=== PATIENT | female | born 1955 | race African-American/Black ===

== ENCOUNTER 2018-03-03 10:25 | Inpatient (IN) | payer MEDICAID ==
[2018-03-03] VITALS (7 sets, daily range): BP systolic 140–172; BP diastolic 50–97
[~2018-03-03] VITALS: Ht 170.2 cm; Wt 62.6 kg
[~2018-03-03 10:25] MED LIST: AMLO10TA80 PO; ASPI-1159 PO; DOCU-150 PO; FLUT1DIS IH; GABA-531 PO; LORA0.5T2 PO
[2018-03-03] MEDS ORDERED: ASPIRIN 81MG TABLET PO ONE (10:30)
[2018-03-03] MEDS ORDERED: ALBUTEROL (0.083%) 2.5MG/3ML NEB HHN STA (10:30)
[2018-03-03] MEDS ORDERED: METHYLPREDNISOLONE SOD SUCC 125 MG/2 ML VIAL IV STA (10:30)
[2018-03-03] MEDS ORDERED: IPRATROPIUM BROMIDE (0.02%) 0.5MG/2.5ML NEB HHN STA (10:30)
[2018-03-03] MEDS ORDERED: HYDRALAZINE 20MG/ML VIAL IV ONE (10:45)
[2018-03-03 10:58] LABS: BASOPHILS % 0.2 % (0.0-2.0); EOSINOPHILS % 1.1 % (0.0-5.0); HEMATOCRIT. 42.1 % (36.0-48.0); HEMOGLOBIN. 13.8 g/dL (12.0-16.0); LYMPHOCYTES % 13.9 % (20.0-50.0); MEAN CORPUSCULAR HEMOGLOBIN 28.3 pg (28.0-32.0); MEAN CORPUSCULAR VOLUME 86.3 fL (81.0-99.0); MEAN PLATELET VOLUME 8.9 fl (7.4-10.4); MONOCYTES % 8.2 % (2.0-8.0); NEUTROPHILS % 76.6 % (40.0-76.0); PLATELET 163 x1000/uL (130-400); RED BLOOD CELL COUNT 4.88 mill/uL (4.2-5.4); RED CELL DISTRIBUTION WIDTH 13.3 % (11.6-14.6)
[2018-03-03 11:00] LABS: CHLORIDE 111 mEq/L (98-107)
[2018-03-03 11:03] LABS: INR 1.1; PARTIAL THROMBOPLASTIN TIME 28.7 sec (23.4-31.0); PROTHROMBIN TIME 10.7 sec (9.1-11.1)
[2018-03-03 11:36] LABS: BG BASE EXCESS -3.5 mmol/L (-2.0-2.0); BG BILEVEL POS AIRWAY PRESSURE 15/5; BG CARBOXYHEMOGLOBIN 1.3 % (0.5-1.5); BG DEOXYHEMOGLOBIN 0.2 % (0.0-5.0); BG FRACTION INSPIRED OXYGEN 100; BG HCO3 ACT 24.7 mmol/L (22.0-26.0); BG METHEMOGLOBIN 0.5 % (0.0-1.5); BG OXYGEN SATURATION 99.8 % (92.0-98.5); BG PCO2 58.4 mmHg (35.0-45.0); BG PH 7.245 (7.350-7.450); BG PO2 489.5 mmHg (75.0-100.0); BG SAMPLE SITE RIGHT RADIAL; BG TOTAL HEMOGLOBIN 13.8 g/dL (12.0-18.0); BG VENT MODE MASK - BIPAP; BG VENT RATE 20 set
[2018-03-03] MEDS ORDERED: GUAIFENESIN 200MG/10ML SUGAR FREE UDC PO PRN (11:45)
[2018-03-03] MEDS ORDERED: DOCUSATE SODIUM 100MG CAPSULE PO PRN (11:45)
[2018-03-03] MEDS ORDERED: KETOROLAC 15MG/ML VIAL IV PRN (11:45)
[2018-03-03] MEDS ORDERED: NITROGLYCERIN 0.4MG TABLET SL SL PRN (11:45)
[2018-03-03] MEDS ORDERED: NA PHOS,M-B/NA PHOS,DI-BA ENEMA 118ML PR PRN (11:45)
[2018-03-03] MEDS ORDERED: MAGNESIUM/ALUMINUM HYDROXIDE/SIMETHICONE 30ML UDC PO PRN (11:45)
[2018-03-03] MEDS ORDERED: IPRATROPIUM/ALBUTEROL 0.5-3(2.5)MG/3ML NEB INH PRN (11:45)
[2018-03-03] MEDS ORDERED: ONDANSETRON HCL 4MG/2ML INJ IV ONE (12:45)
[2018-03-03] MEDS: ENOXAPARIN 40MG/0.4ML SYR SUBCUT SCH (15:36)
[2018-03-03] MEDS: METHYLPREDNISOLONE SOD SUCC 125 MG/2 ML VIAL IV SCH ×2 (15:36→22:00)
[2018-03-03] MEDS: AMLODIPINE 10MG TABLET PO SCH (15:37)
[2018-03-03] MEDS ORDERED: NICOTINE 21MG PATCH TD NR (16:00)
[2018-03-03] MEDS: IPRATROPIUM/ALBUTEROL 0.5-3(2.5)MG/3ML NEB HHN SCH ×2 (16:05→20:45)
[2018-03-03 17:37] LABS: CREATINE KINASE MB FRACTION 34.8 ng/mL (0.5-3.6)
[2018-03-03] MEDS: MONTELUKAST SODIUM 10MG TABLET PO SCH (18:31)
[2018-03-03] MEDS: LEVOFLOXACIN 500MG PREMIX 100 ML IV SCH (18:31)
[2018-03-03 20:01] LABS: CLARITY URINE CLEAR (CLEAR); COLOR URINE DARK YELLOW (YELLOW); KETONES URINE NEGATIVE (NEGATIVE); LEUKOCYTE ESTERASE URINE TRACE (NEGATIVE); NITRITE URINE NEGATIVE (NEGATIVE); OCCULT BLOOD URINE NEGATIVE (NEGATIVE); PH URINE 5.5 (4.5-8.0); PROTEIN URINE 1+ (NEGATIVE); SPECIFIC GRAVITY URINE 1.021 (1.005-1.030)
[2018-03-03 20:16] LABS: *AMPHETAMINES SCREEN URINE NEGATIVE (NEGATIVE); *BARBITURATES SCREEN URINE NEGATIVE (NEGATIVE); *BENZODIAZEPINES SCREEN URINE NEGATIVE (NEGATIVE); *COCAINE SCREEN URINE NEGATIVE (NEGATIVE); OPIATES URINE SCREEN PRESUMTIVE POSITIVE (NEGATIVE); PHENCYCLIDINE URINE SCREEN NEGATIVE (NEGATIVE)
[2018-03-03 20:17] LABS: CANNABINOID URINE SCREEN NEGATIVE (NEGATIVE)
[2018-03-03 20:31] LABS: METHADONE URINE SCREEN PRESUMTIVE POSITIVE (NEGATIVE)
[2018-03-03] MEDS: GUAIFENESIN/DM 600MG/30MG ER TAB 12HR PO SCH (22:00)
[2018-03-03] MEDS: FLUTICASONE PROPIONATE 50MCG/SPRAY BOTTLE BOTHNSTRLS SCH (22:00)
[2018-03-03] MEDS: FAMOTIDINE 20MG TABLET PO SCH (22:01)
[2018-03-03] MEDS: ZOLPIDEM TARTRATE 5MG TABLET PO PRN (22:09)
[2018-03-04] VITALS (16 sets, daily range): BP systolic 123–164; BP diastolic 63–108
[2018-03-04] MEDS: IPRATROPIUM/ALBUTEROL 0.5-3(2.5)MG/3ML NEB HHN SCH ×6 (00:48→21:27)
[2018-03-04] MEDS: LORAZEPAM 0.5MG TABLET PO PRN ×2 (01:04→13:06)
[2018-03-04 01:39] LABS: CREATINE KINASE MB FRACTION 26.4 ng/mL (0.5-3.6)
[2018-03-04] MEDS: METHYLPREDNISOLONE SOD SUCC 125 MG/2 ML VIAL IV SCH ×3 (05:47→21:03)
[2018-03-04] MEDS: NICOTINE 21MG PATCH TD SCH (09:09)
[2018-03-04] MEDS: ASPIRIN 325MG EC TABLET PO SCH (09:09)
[2018-03-04] MEDS: AMLODIPINE 10MG TABLET PO SCH (09:09)
[2018-03-04] MEDS: FAMOTIDINE 20MG TABLET PO SCH ×2 (09:09→20:58)
[2018-03-04] MEDS: GUAIFENESIN/DM 600MG/30MG ER TAB 12HR PO SCH ×2 (09:09→20:58)
[2018-03-04] MEDS: FLUTICASONE PROPIONATE 50MCG/SPRAY BOTTLE BOTHNSTRLS SCH ×2 (09:10→21:04)
[2018-03-04 12:07] LABS: *AMPHETAMINES SCREEN URINE NEGATIVE (NEGATIVE); *BARBITURATES SCREEN URINE NEGATIVE (NEGATIVE); *BENZODIAZEPINES SCREEN URINE NEGATIVE (NEGATIVE); *COCAINE SCREEN URINE NEGATIVE (NEGATIVE); CANNABINOID URINE SCREEN NEGATIVE (NEGATIVE); OPIATES URINE SCREEN PRESUMTIVE POSITIVE (NEGATIVE); PHENCYCLIDINE URINE SCREEN PRESUMTIVE POSITIVE (NEGATIVE)
[2018-03-04 12:12] LABS: METHADONE URINE SCREEN PRESUMTIVE POSITIVE (NEGATIVE)
[2018-03-04] MEDS: LEVOFLOXACIN 500MG PREMIX 100 ML IV SCH (14:33)
[2018-03-04] MEDS: CLONIDINE 0.1MG TABLET PO PRN (14:34)
[2018-03-04] MEDS: ENOXAPARIN 40MG/0.4ML SYR SUBCUT SCH (14:37)
[2018-03-04] MEDS ORDERED: METHADONE HCL 10MG TABLET PO NR (16:15)
[2018-03-04] MEDS ORDERED: METH10TA2 PO (16:19)
[2018-03-04] MEDS ORDERED: ALBU18HF2 IH (16:19)
[2018-03-04] MEDS ORDERED: FLUT1BLS IH (16:19)
[2018-03-04] MEDS ORDERED: PROM5SYR PO (16:19)
[2018-03-04] MEDS ORDERED: LOSA100T14 MT (16:19)
[2018-03-04] MEDS ORDERED: DILT240C91 MT (16:19)
[2018-03-04] MEDS: MONTELUKAST SODIUM 10MG TABLET PO SCH (16:41)
[2018-03-04] MEDS: ZOLPIDEM TARTRATE 5MG TABLET PO PRN (21:18)
[2018-03-05] VITALS (13 sets, daily range): BP systolic 123–183; BP diastolic 73–140
[2018-03-05] MEDS: IPRATROPIUM/ALBUTEROL 0.5-3(2.5)MG/3ML NEB HHN SCH ×5 (00:51→20:16)
[2018-03-05] MEDS: LORAZEPAM 0.5MG TABLET PO PRN ×3 (04:10→19:18)
[2018-03-05] MEDS: CLONIDINE 0.1MG TABLET PO PRN ×3 (04:10→21:17)
[2018-03-05] MEDS: METHYLPREDNISOLONE SOD SUCC 125 MG/2 ML VIAL IV SCH ×3 (05:13→21:44)
[2018-03-05] MEDS: GUAIFENESIN/DM 600MG/30MG ER TAB 12HR PO SCH ×2 (08:29→21:44)
[2018-03-05] MEDS: FAMOTIDINE 20MG TABLET PO SCH ×2 (08:29→21:44)
[2018-03-05] MEDS: AMLODIPINE 10MG TABLET PO SCH (08:30)
[2018-03-05] MEDS: ASPIRIN 325MG EC TABLET PO SCH (08:30)
[2018-03-05] MEDS: NICOTINE 21MG PATCH TD SCH (08:30)
[2018-03-05] MEDS: FLUTICASONE PROPIONATE 50MCG/SPRAY BOTTLE BOTHNSTRLS SCH ×2 (08:30→21:00)
[2018-03-05] MEDS ORDERED: METHADONE HCL 10MG TABLET PO SCH (09:00)
[2018-03-05] MEDS ORDERED: LEVOFLOXACIN 500MG PREMIX 100 ML IV SCH (14:00)
[2018-03-05] MEDS: ENOXAPARIN 40MG/0.4ML SYR SUBCUT SCH (15:17)
[2018-03-05] MEDS: ACETAMINOPHEN 325MG TABLET PO PRN (15:17)
[2018-03-05] MEDS: MONTELUKAST SODIUM 10MG TABLET PO SCH (15:18)
[2018-03-05] MEDS ORDERED: HYDRALAZINE 20MG/ML VIAL IV ONE ×2 (17:45→21:15)
[2018-03-05] MEDS: ONDANSETRON HCL 4MG/2ML INJ IV PRN ×2 (18:22→23:48)
[2018-03-05] MEDS: DILTIAZEM HCL 60MG TABLET PO SCH ×2 (18:23→23:49)
[2018-03-05] MEDS ORDERED: HYDRALAZINE 20MG/ML VIAL IV NR (21:15)
[2018-03-05] MEDS ORDERED: CLONIDINE 0.2MG TABLET PO PRN (22:15)
[2018-03-05] MEDS ORDERED: LORAZEPAM 2MG/ML CPJ IV ONE (22:15)
[2018-03-05] MEDS: ZOLPIDEM TARTRATE 5MG TABLET PO PRN (23:48)
[2018-03-06] VITALS (7 sets, daily range): BP systolic 131–171; BP diastolic 70–87
[2018-03-06] MEDS: IPRATROPIUM/ALBUTEROL 0.5-3(2.5)MG/3ML NEB HHN SCH ×4 (00:22→12:08)
[2018-03-06] MEDS: ONDANSETRON HCL 4MG/2ML INJ IV PRN (04:20)
[2018-03-06] MEDS: METHYLPREDNISOLONE SOD SUCC 125 MG/2 ML VIAL IV SCH (05:30)
[2018-03-06] MEDS: DILTIAZEM HCL 60MG TABLET PO SCH ×2 (06:18→11:37)
[2018-03-06] MEDS: ASPIRIN 325MG EC TABLET PO SCH (09:30)
[2018-03-06] MEDS: AMLODIPINE 10MG TABLET PO SCH (09:30)
[2018-03-06] MEDS: FAMOTIDINE 20MG TABLET PO SCH (09:31)
[2018-03-06] MEDS: GUAIFENESIN/DM 600MG/30MG ER TAB 12HR PO SCH (09:31)
[2018-03-06] MEDS: FLUTICASONE PROPIONATE 50MCG/SPRAY BOTTLE BOTHNSTRLS SCH (09:32)
[2018-03-06] MEDS: NICOTINE 21MG PATCH TD SCH (09:32)
[2018-03-06] MEDS: ACETAMINOPHEN 325MG TABLET PO PRN (11:37)
== END 2018-03-06 13:42 | disposition home or self-care (01) | DRG 140 ==
LOC: ER 10:25 → 5EST 11:31 → ENRESERV 12:41
PROVIDERS: ADMIT Internal Medicine; ATTEND Internal Medicine
PROC: 5A09457 Assistance with Respiratory Ventilation, 24-96 Consecutive Hours, Continuous Positive Airway Pressure (ICD-10-PCS; principal; 2018-03-03)
DX: J44.1 Chronic obstructive pulmonary disease with (acute) exacerbation (principal); J96.01 Acute respiratory failure with hypoxia; J96.02 Acute respiratory failure with hypercapnia; I27.21 Secondary pulmonary arterial hypertension; D72.829 Elevated white blood cell count, unspecified; F17.210 Nicotine dependence, cigarettes, uncomplicated; J00 Acute nasopharyngitis [common cold]; F41.9 Anxiety disorder, unspecified; F11.10 Opioid abuse, uncomplicated; I07.1 Rheumatic tricuspid insufficiency; I10 Essential (primary) hypertension; Z99.81 Dependence on supplemental oxygen; Z88.0 Allergy status to penicillin; Z90.49 Acquired absence of other specified parts of digestive tract; Z79.899 Other long term (current) drug therapy; Z82.49 Family history of ischemic heart disease and other diseases of the circulatory system
CPT/HCPCS: 36415; 36600; 71045; 74018; 80061; 80305; 82375; 82550; 82553; 82805; 83036; 83880; 84484; 87804; 93005; 93970; 94640; 94660; 96374; 96375; 99291; J0360; J1650; J1885; J1956; J2060; J2405; J2930; J7050; J7611; J7620

== ENCOUNTER 2020-05-13 01:03 | Inpatient (IN) | payer MEDICAID ==
[~2020-05-13] VITALS: Ht 170.2 cm; Wt 54.4 kg
[~2020-05-13 01:03] MED LIST changes: +ALBU18HF2 IH; -ASPI-1159 PO; +ASPI-1497 PO; +DILT240C91 MT; +FLUT1BLS IH; -GABA-531 PO; +GABA-532 PO; +LOSA100T32 MT; +METH10TA2 PO; +PROM5SYR PO
[2020-05-13] MEDS ORDERED: METHYLPREDNISOLONE SOD SUCC 125 MG/2 ML VIAL IV STA (01:55)
[2020-05-13] MEDS ORDERED: IPRATROPIUM BROMIDE (0.02%) 0.5MG/2.5ML NEB HHN STA (01:55)
[2020-05-13 02:13] LABS: BASOPHILS % 0.5 % (0.0-2.0); EOSINOPHILS % 1.9 % (0.0-5.0); HEMATOCRIT. 38.2 % (36.0-48.0); HEMOGLOBIN. 12.1 g/dL (12.0-16.0); LYMPHOCYTES % 29.5 % (20.0-50.0); MEAN CORPUSCULAR HEMOGLOBIN 25.6 pg (28.0-32.0); MEAN CORPUSCULAR VOLUME 80.8 fL (81.0-99.0); MEAN PLATELET VOLUME 8.7 fl (7.4-10.4); MONOCYTES % 10.2 % (2.0-8.0); NEUTROPHILS % 57.9 % (40.0-76.0); PLATELET 126 x1000/uL (130-400); RED BLOOD CELL COUNT 4.73 mill/uL (4.2-5.4); RED CELL DISTRIBUTION WIDTH 17.6 % (11.6-14.6)
[2020-05-13 02:17] LABS: CHLORIDE 107 mEq/L (98-107)
[2020-05-13] MEDS: ALBUTEROL (0.083%) 2.5MG/3ML NEB HHN SCH ×3 (02:38→03:38)
[2020-05-13 02:45] LABS: BG BASE EXCESS 3.1 mmol/L (-2.0-2.0); BG CARBOXYHEMOGLOBIN 0.4 % (0.5-1.5); BG DEOXYHEMOGLOBIN 9.6 % (0.0-5.0); BG FRACTION INSPIRED OXYGEN 34; BG HCO3 ACT 29.8 mmol/L (22.0-26.0); BG METHEMOGLOBIN 0.2 % (0.0-1.5); BG OXYGEN SATURATION 90.3 % (92.0-98.5); BG OXYHEMOGLOBIN 89.8 % (94.0-97.0); BG PCO2 55.9 mmHg (35.0-45.0); BG PH 7.345 (7.350-7.450); BG PO2 61.7 mmHg (75.0-100.0); BG TOTAL HEMOGLOBIN 11.4 g/dL (12.0-18.0)
[2020-05-13] MEDS ORDERED: LORAZEPAM 2MG/ML CPJ IV ONE (03:45)
[2020-05-13] MEDS ORDERED: ONDANSETRON HCL 4MG/2ML INJ IV PRN (09:30)
[2020-05-13] MEDS ORDERED: BENZONATATE 100MG CAPSULE PO PRN (09:30)
[2020-05-13] MEDS: METHYLPREDNISOLONE SOD SUCC 40 MG/ML VIAL IV SCH ×2 (09:35→17:01)
[2020-05-13] MEDS: ENOXAPARIN 40MG/0.4ML SYR SUBCUT SCH (09:51)
[2020-05-13 11:57] VITALS: BP 178/90
[2020-05-13 12:00] VITALS: BP 176/88
[2020-05-13] MEDS ORDERED: UMEC62.5 INH (12:04)
[2020-05-13] MEDS: AMLODIPINE 10MG TABLET PO SCH (13:01)
[2020-05-13] MEDS: METHADONE HCL 10MG TABLET PO SCH (13:01)
[2020-05-13] MEDS: LORAZEPAM 1MG TABLET PO PRN (13:01)
[2020-05-13 16:00] VITALS: BP 141/71
[2020-05-13] MEDS ORDERED: DILT30TA38 MT (17:40)
[2020-05-13] MEDS ORDERED: DILT30TA38 PO (17:45)
[2020-05-13] MEDS: LOSARTAN POTASSIUM 100 MG TABLET PO SCH (17:53)
[2020-05-13 20:00] VITALS: BP 144/73
[2020-05-13] MEDS: IPRATROPIUM/ALBUTEROL 0.5-3(2.5)MG/3ML NEB HHN SCH (20:08)
[2020-05-13 20:12] LABS: *AMPHETAMINES SCREEN URINE NEGATIVE (NEGATIVE); *BARBITURATES SCREEN URINE NEGATIVE (NEGATIVE); *BENZODIAZEPINES SCREEN URINE NEGATIVE (NEGATIVE)
[2020-05-13 20:13] LABS: *COCAINE SCREEN URINE NEGATIVE (NEGATIVE); CANNABINOID URINE SCREEN NEGATIVE (NEGATIVE); OPIATES URINE SCREEN NEGATIVE (NEGATIVE); PHENCYCLIDINE URINE SCREEN NEGATIVE (NEGATIVE)
[2020-05-13 20:16] LABS: METHADONE URINE SCREEN PRESUMTIVE POSITIVE (NEGATIVE)
[2020-05-13] MEDS: FAMOTIDINE 20MG TABLET PO SCH (21:42)
[2020-05-13] MEDS: ACETAMINOPHEN 325MG TABLET PO PRN (21:42)
[2020-05-13] MEDS ORDERED: IOHEXOL-350 100 ML BOTTLE ONE (22:40)
[2020-05-14] VITALS: BP 159/77
[2020-05-14] MEDS: IPRATROPIUM/ALBUTEROL 0.5-3(2.5)MG/3ML NEB HHN SCH ×6 (01:13→16:13)
[2020-05-14] MEDS: LORAZEPAM 1MG TABLET PO PRN ×2 (01:40→22:10)
[2020-05-14] MEDS: METHYLPREDNISOLONE SOD SUCC 40 MG/ML VIAL IV SCH ×3 (01:40→16:40)
[2020-05-14 04:00] VITALS: BP 159/77
[2020-05-14] MEDS: CLONIDINE 0.1MG TABLET PO PRN ×2 (04:20→18:03)
[2020-05-14] MEDS: ACETAMINOPHEN 325MG TABLET PO PRN (04:21)
[2020-05-14 08:00] VITALS: BP 181/94
[2020-05-14] MEDS: FAMOTIDINE 20MG TABLET PO SCH ×2 (08:30→21:21)
[2020-05-14] MEDS: LOSARTAN POTASSIUM 100 MG TABLET PO SCH (08:30)
[2020-05-14] MEDS: ASPIRIN 81MG EC TABLET PO SCH (08:30)
[2020-05-14] MEDS: AMLODIPINE 10MG TABLET PO SCH (08:30)
[2020-05-14] MEDS: METHADONE HCL 10MG TABLET PO SCH (08:31)
[2020-05-14] MEDS ORDERED: DILTIAZEM HCL 30MG TABLET PO SCH (09:00)
[2020-05-14] MEDS ORDERED: LOSARTAN POTASSIUM 100 MG TABLET PO SCH (09:00)
[2020-05-14] MEDS: ENOXAPARIN 40MG/0.4ML SYR SUBCUT SCH (09:33)
[2020-05-14 12:00] VITALS: BP 149/65
[2020-05-14] MEDS: ASPIRIN/ACETAMINOPHEN/CAFFEINE 250/250/65MG TABLET PO PRN ×2 (12:38→18:59)
[2020-05-14 16:00] VITALS: BP 162/76
[2020-05-14] MEDS ORDERED: DILT240T12 MT (17:48)
[2020-05-14] MEDS: DILTIAZEM HCL 120MG CAPSULE CD 24HR PO SCH (17:58)
[2020-05-14 20:00] VITALS: BP 154/74
[2020-05-15] VITALS: BP 157/80
[2020-05-15] MEDS: IPRATROPIUM/ALBUTEROL 0.5-3(2.5)MG/3ML NEB HHN SCH ×6 (00:18→21:06)
[2020-05-15] MEDS: ASPIRIN/ACETAMINOPHEN/CAFFEINE 250/250/65MG TABLET PO PRN ×3 (02:15→23:49)
[2020-05-15] MEDS: METHYLPREDNISOLONE SOD SUCC 40 MG/ML VIAL IV SCH ×3 (02:15→18:34)
[2020-05-15 04:00] VITALS: BP 160/84
[2020-05-15] MEDS: CLONIDINE 0.1MG TABLET PO PRN (06:30)
[2020-05-15 08:00] VITALS: BP 117/63
[2020-05-15] MEDS ORDERED: MEDICATION NOT ON FORMULARY EA (Diltiazem HCl (Diltiazem ER) 1 TAB) MT SCH (09:00)
[2020-05-15] MEDS: LOSARTAN POTASSIUM 100 MG TABLET PO SCH (09:20)
[2020-05-15] MEDS: METHADONE HCL 10MG TABLET PO SCH (09:20)
[2020-05-15] MEDS: ASPIRIN 81MG EC TABLET PO SCH (09:20)
[2020-05-15] MEDS: DILTIAZEM HCL 120MG CAPSULE CD 24HR PO SCH (09:21)
[2020-05-15] MEDS: FAMOTIDINE 20MG TABLET PO SCH ×2 (09:21→21:11)
[2020-05-15] MEDS: AMLODIPINE 10MG TABLET PO SCH (09:21)
[2020-05-15] MEDS: ENOXAPARIN 40MG/0.4ML SYR SUBCUT SCH (09:22)
[2020-05-15] MEDS ORDERED: TERBUTALINE SULFATE 1MG/ML VIAL SUBCUT SCH (14:15)
[2020-05-15 16:00] VITALS: BP 100/67
[2020-05-15 20:00] VITALS: BP 141/66
[2020-05-16] VITALS (7 sets, daily range): BP systolic 124–169; BP diastolic 67–80
[2020-05-16] MEDS: IPRATROPIUM/ALBUTEROL 0.5-3(2.5)MG/3ML NEB HHN SCH ×6 (00:15→21:11)
[2020-05-16] MEDS: METHYLPREDNISOLONE SOD SUCC 40 MG/ML VIAL IV SCH (01:53)
[2020-05-16] MEDS: DILTIAZEM HCL 120MG CAPSULE CD 24HR PO SCH (09:04)
[2020-05-16] MEDS: LOSARTAN POTASSIUM 100 MG TABLET PO SCH (09:04)
[2020-05-16] MEDS: METHADONE HCL 10MG TABLET PO SCH (09:05)
[2020-05-16] MEDS: PREDNISONE 20MG TABLET PO SCH (09:05)
[2020-05-16] MEDS: ASPIRIN 81MG EC TABLET PO SCH (09:05)
[2020-05-16] MEDS: AMLODIPINE 10MG TABLET PO SCH (09:05)
[2020-05-16] MEDS: FAMOTIDINE 20MG TABLET PO SCH ×2 (09:06→21:54)
[2020-05-16] MEDS: ENOXAPARIN 40MG/0.4ML SYR SUBCUT SCH (09:09)
[2020-05-16] MEDS ORDERED: DOCUSATE SODIUM 250MG CAPSULE PO NR (11:00)
[2020-05-16] MEDS ORDERED: BISACODYL 5MG TABLET PO NR (11:00)
[2020-05-16] MEDS: ONDANSETRON HCL 4MG TABLET PO PRN (12:19)
[2020-05-16] MEDS ORDERED: SENNOSIDES/DOCUSATE SOD 8.6/50MG TABLET PO PRN (12:45)
[2020-05-16] MEDS: CLONIDINE 0.1MG TABLET PO PRN (14:20)
[2020-05-16] MEDS ORDERED: P20 MT (17:14)
[2020-05-16] MEDS ORDERED: ALBU18HF2 IH (17:14)
[2020-05-16] MEDS ORDERED: IPRA3AMP9 NEB (17:14)
[2020-05-16] MEDS ORDERED: AMLO10TA80 PO (17:14)
[2020-05-16] MEDS ORDERED: FLUT1DIS3 INH (17:14)
[2020-05-16] MEDS ORDERED: HYDR-4135 MT (17:14)
[2020-05-16] MEDS ORDERED: DILT240T12 MT (17:14)
[2020-05-16] MEDS ORDERED: HYDRALAZINE HCL 50MG TABLET PO NR (17:15)
[2020-05-16] MEDS ORDERED: NA PHOS,M-B/NA PHOS,DI-BA ENEMA 118ML PR NR (19:45)
[2020-05-16] MEDS: HYDRALAZINE HCL 50MG TABLET PO SCH (21:54)
[2020-05-17] VITALS: BP 135/72
[2020-05-17] MEDS: IPRATROPIUM/ALBUTEROL 0.5-3(2.5)MG/3ML NEB HHN SCH ×3 (00:15→08:45)
[2020-05-17 04:00] VITALS: BP 157/77
[2020-05-17 08:00] VITALS: BP 162/76
[2020-05-17] MEDS: HYDRALAZINE HCL 50MG TABLET PO SCH (08:11)
[2020-05-17] MEDS: METHADONE HCL 10MG TABLET PO SCH (08:11)
[2020-05-17] MEDS: PREDNISONE 20MG TABLET PO SCH (08:11)
[2020-05-17] MEDS: DILTIAZEM HCL 120MG CAPSULE CD 24HR PO SCH (08:12)
[2020-05-17] MEDS: CLONIDINE 0.1MG TABLET PO PRN (08:12)
[2020-05-17] MEDS: ASPIRIN 81MG EC TABLET PO SCH (08:12)
[2020-05-17] MEDS: FAMOTIDINE 20MG TABLET PO SCH (08:12)
[2020-05-17] MEDS: ONDANSETRON HCL 4MG TABLET PO PRN (08:40)
[2020-05-17 09:43] VITALS: BP 151/77
== END 2020-05-17 10:25 | disposition home or self-care (01) | DRG 140 ==
LOC: ER 01:03 → 6WST 05:17 → ENRESERV 10:23
PROVIDERS: ADMIT Internal Medicine; ATTEND Internal Medicine
DX: J44.1 Chronic obstructive pulmonary disease with (acute) exacerbation (principal); J96.20 Acute and chronic respiratory failure, unspecified whether with hypoxia or hypercapnia; F41.9 Anxiety disorder, unspecified; B19.20 Unspecified viral hepatitis C without hepatic coma; G43.909 Migraine, unspecified, not intractable, without status migrainosus; I16.0 Hypertensive urgency; K59.00 Constipation, unspecified; R74.01 Elevation of levels of liver transaminase levels; I10 Essential (primary) hypertension; Z99.81 Dependence on supplemental oxygen; Z88.0 Allergy status to penicillin; Z79.82 Long term (current) use of aspirin; Z79.899 Other long term (current) drug therapy; Z82.49 Family history of ischemic heart disease and other diseases of the circulatory system
CPT/HCPCS: 36415; 36600; 71045; 71275; 80053; 80305; 82375; 82805; 83605; 83880; 84484; 85025; 85379; 93005; 93970; 94640; 99285; C1893; J1650; J2060; J2920; J2930; J7512; Q0162; Q9967

== ENCOUNTER 2020-11-02 18:57 | Inpatient (IN) | payer MEDICAID ==
[~2020-11-02] VITALS: Ht 170.2 cm; Wt 63.5 kg
[~2020-11-02 18:57] MED LIST changes: -DILT240C91 MT; +DILT240T12 MT; -DOCU-150 PO; -FLUT1BLS IH; -FLUT1DIS IH; +FLUT1DIS3 INH; +FURO40TA5 MT; -GABA-532 PO; +HYDR-4134 MT; +HYDR-4135 MT; +IPRA3AMP9 NEB; +LORA-250 PO; +LOSA100T3 MT; -LOSA100T32 MT; +METH-611 PO; +MULT-10; +OMEP40CA12 MT; +P20 MT; +PRED5TAB48 PO; -PROM5SYR PO; +UMEC62.5 INH
[2020-11-02] MEDS ORDERED: IPRATROPIUM BROMIDE (0.02%) 0.5MG/2.5ML NEB HHN STA (20:05)
[2020-11-02] MEDS ORDERED: ALBUTEROL (0.083%) 2.5MG/3ML NEB HHN STA (20:05)
[2020-11-02] MEDS ORDERED: PREDNISONE 20MG TABLET PO STA (20:05)
[2020-11-02 21:24] LABS: BASOPHILS % 0.2 % (0.0-2.0); HEMATOCRIT. 35.2 % (36.0-48.0); HEMOGLOBIN. 11.3 g/dL (12.0-16.0); LYMPHOCYTES % 13.5 % (20.0-50.0); MEAN CORPUSCULAR HEMOGLOBIN 24.5 pg (28.0-32.0); MEAN CORPUSCULAR VOLUME 76.3 fL (81.0-99.0); MEAN PLATELET VOLUME 8.9 fl (7.4-10.4); MONOCYTES % 13.1 % (2.0-8.0); NEUTROPHILS % 73.2 % (40.0-76.0); PLATELET 126 x1000/uL (130-400); RED BLOOD CELL COUNT 4.62 mill/uL (4.2-5.4); RED CELL DISTRIBUTION WIDTH 16.6 % (11.6-14.6)
[2020-11-02] MEDS ORDERED: MAGNESIUM/ALUMINUM HYDROXIDE/SIMETHICONE 30ML UDC PO PRN (23:15)
[2020-11-02] MEDS ORDERED: HYDROCODONE/ACETAMINOPHEN 5/325MG TABLET PO PRN (23:15)
[2020-11-02] MEDS ORDERED: DOCUSATE SODIUM 100MG CAPSULE PO PRN (23:15)
[2020-11-02] MEDS ORDERED: LEVOFLOXACIN 500MG PREMIX 100 ML IV SCH (23:15)
[2020-11-02] MEDS ORDERED: MORPHINE SULFATE 2 MG/ML CPJ (NOT FOR IM USE) IV PRN (23:15)
[2020-11-02] MEDS ORDERED: DIPHENHYDRAMINE 50MG/ML VIAL IV PRN (23:15)
[2020-11-02] MEDS ORDERED: ONDANSETRON HCL 4MG/2ML INJ IV PRN (23:15)
[2020-11-03] MEDS: LORAZEPAM 2MG/ML CPJ IV PRN ×3 (00:20→15:19)
[2020-11-03] MEDS ORDERED: NOREPINEPHRINE 8 MG in DEXT 5% WATER 242 ML IV PRN (01:15)
[2020-11-03] MEDS ORDERED: NOREPINEPHRINE 8MG/250ML PMX 250 ML IV PRN (01:30)
[2020-11-03] MEDS ORDERED: NOREPINEPHRINE 8MG/250ML PMX 250ML IV PRN (01:30)
[2020-11-03] MEDS ORDERED: SODIUM CHLORIDE 0.9% 1,800 ML IV NR (01:45)
[2020-11-03] MEDS ORDERED: VANCOMYCIN 1 G PREMIX 200 ML IV NR (02:00)
[2020-11-03] MEDS ORDERED: MEROPENEM 1,000 MG in SODIUM CHLORIDE 0.9% 100 ML IV NR (04:00)
[2020-11-03] MEDS: METHYLPREDNISOLONE SOD SUCC 125 MG/2 ML VIAL IV SCH ×3 (06:08→22:00)
[2020-11-03] MEDS: SODIUM CHLORIDE 0.9% INJ 3ML FLUSH IVF SCH ×2 (06:09→14:39)
[2020-11-03 06:54] LABS: CLARITY URINE CLEAR (CLEAR); COLOR URINE YELLOW (YELLOW); KETONES URINE NEGATIVE (NEGATIVE); LEUKOCYTE ESTERASE URINE NEGATIVE (NEGATIVE); NITRITE URINE NEGATIVE (NEGATIVE); OCCULT BLOOD URINE NEGATIVE (NEGATIVE); PROTEIN URINE TRACE (NEGATIVE); SPECIFIC GRAVITY URINE 1.016 (1.005-1.030)
[2020-11-03 08:29] LABS: HEMATOCRIT. 30.3 % (36.0-48.0); HEMOGLOBIN. 9.9 g/dL (12.0-16.0); MEAN CORPUSCULAR HEMOGLOBIN 24.9 pg (28.0-32.0); MEAN CORPUSCULAR VOLUME 76.6 fL (81.0-99.0); MEAN PLATELET VOLUME 9.9 fl (7.4-10.4); PLATELET 117 x1000/uL (130-400); RED BLOOD CELL COUNT 3.96 mill/uL (4.2-5.4); RED CELL DISTRIBUTION WIDTH 16.7 % (11.6-14.6)
[2020-11-03 08:37] LABS: CHLORIDE 107 mEq/L (98-107)
[2020-11-03 08:50] LABS: CREATINE KINASE MB FRACTION 51.9 ng/mL (0.5-3.6)
[2020-11-03 08:58] LABS: CREATINE KINASE 1021 IU/L (26-192)
[2020-11-03] MEDS ORDERED: ENOXAPARIN 30MG/0.3ML SYR SUBCUT SCH (09:00)
[2020-11-03] MEDS: IPRATROPIUM/ALBUTEROL 0.5-3(2.5)MG/3ML NEB HHN PRN (09:12)
[2020-11-03 09:28] LABS: BG BASE EXCESS -4.7 mmol/L (-2.0-2.0); BG CARBOXYHEMOGLOBIN 0.3 % (0.5-1.5); BG DEOXYHEMOGLOBIN 4.5 % (0.0-5.0); BG HCO3 ACT 22.6 mmol/L (22.0-26.0); BG METHEMOGLOBIN 0.3 % (0.0-1.5); BG OXYGEN SATURATION 95.5 % (92.0-98.5); BG OXYHEMOGLOBIN 94.9 % (94.0-97.0); BG PCO2 51.3 mmHg (35.0-45.0); BG PH 7.261 (7.350-7.450); BG PO2 88.1 mmHg (75.0-100.0); BG SAMPLE SITE LEFT RADIAL; BG TOTAL HEMOGLOBIN 11.1 g/dL (12.0-18.0); BG VENT MODE MASK - BIPAP
[2020-11-03 09:59] LABS: PLATELET ESTIMATE DECREASED
[2020-11-03 15:41] LABS: CREATINE KINASE MB FRACTION 60.8 ng/mL (0.5-3.6)
[2020-11-03] MEDS ORDERED: METHADONE HCL 10MG TABLET PO NR ×2 (17:15)
[2020-11-03] MEDS ORDERED: NALOXONE HCL 0.4MG/ML VIAL IV PRN (20:00)
[2020-11-03] MEDS: LEVOFLOXACIN 250MG PREMIX 50 ML IV SCH (22:01)
[2020-11-03 23:09] VITALS: BP 123/68
[2020-11-04] VITALS (11 sets, daily range): BP systolic 98–135; BP diastolic 58–76
[2020-11-04] MEDS: LORAZEPAM 2MG/ML CPJ IV PRN (00:38)
[2020-11-04] MEDS: IPRATROPIUM/ALBUTEROL 0.5-3(2.5)MG/3ML NEB HHN PRN (04:22)
[2020-11-04] MEDS: METHYLPREDNISOLONE SOD SUCC 125 MG/2 ML VIAL IV SCH ×3 (05:19→21:15)
[2020-11-04] MEDS: GUAIFENESIN 200MG/10ML SUGAR FREE UDC PO PRN ×4 (05:19→21:15)
[2020-11-04] MEDS: SODIUM CHLORIDE 0.9% INJ 3ML FLUSH IVF SCH ×4 (05:25→21:15)
[2020-11-04] MEDS ORDERED: PNEUMOCOCCAL 23-VAL P-SAC VAC 0.5 ML IM ONE (08:00)
[2020-11-04] MEDS ORDERED: METHADONE HCL 10MG TABLET PO SCH (10:45)
[2020-11-04] MEDS: ENOXAPARIN 40MG/0.4ML SYR SUBCUT SCH (11:13)
[2020-11-04 12:43] LABS: BG BASE EXCESS -1.1 mmol/L (-2.0-2.0); BG CARBOXYHEMOGLOBIN 0.3 % (0.5-1.5); BG DEOXYHEMOGLOBIN 17.8 % (0.0-5.0); BG FRACTION INSPIRED OXYGEN 44; BG HCO3 ACT 25.2 mmol/L (22.0-26.0); BG METHEMOGLOBIN 0.1 % (0.0-1.5); BG OXYGEN SATURATION 82.1 % (92.0-98.5); BG OXYHEMOGLOBIN 81.8 % (94.0-97.0); BG PH 7.329 (7.350-7.450); BG PO2 47.5 mmHg (75.0-100.0); BG SAMPLE SITE RIGHT RADIAL; BG TOTAL HEMOGLOBIN 11.1 g/dL (12.0-18.0); BG VENT MODE NASAL CANNULA
[2020-11-04] MEDS: IPRATROPIUM/ALBUTEROL 0.5-3(2.5)MG/3ML NEB HHN SCH ×2 (16:31→20:12)
[2020-11-04] MEDS: ACETYLCYSTEINE 100MG/ML 10% VIAL 4ML INH SCH (16:32)
[2020-11-04] MEDS: LEVOFLOXACIN 250MG PREMIX 50 ML IV SCH (21:14)
[2020-11-05] VITALS (13 sets, daily range): BP systolic 109–152; BP diastolic 57–89
[2020-11-05] MEDS: IPRATROPIUM/ALBUTEROL 0.5-3(2.5)MG/3ML NEB HHN SCH ×6 (00:12→22:00)
[2020-11-05] MEDS: ACETYLCYSTEINE 100MG/ML 10% VIAL 4ML INH SCH ×2 (00:13→13:26)
[2020-11-05] MEDS: GUAIFENESIN 200MG/10ML SUGAR FREE UDC PO PRN ×2 (03:31→21:08)
[2020-11-05] MEDS: ACETAMINOPHEN 325MG TABLET PO PRN ×2 (03:55→21:18)
[2020-11-05] MEDS: SODIUM CHLORIDE 0.9% INJ 3ML FLUSH IVF SCH ×3 (05:28→22:56)
[2020-11-05] MEDS: METHYLPREDNISOLONE SOD SUCC 125 MG/2 ML VIAL IV SCH ×3 (05:28→21:08)
[2020-11-05 07:28] LABS: HEMATOCRIT. 33.1 % (36.0-48.0); HEMOGLOBIN. 10.6 g/dL (12.0-16.0); MEAN CORPUSCULAR HEMOGLOBIN 24.5 pg (28.0-32.0); MEAN CORPUSCULAR VOLUME 76.7 fL (81.0-99.0); MEAN PLATELET VOLUME 8.6 fl (7.4-10.4); PLATELET 143 x1000/uL (130-400); RED BLOOD CELL COUNT 4.32 mill/uL (4.2-5.4); RED CELL DISTRIBUTION WIDTH 16.5 % (11.6-14.6)
[2020-11-05] MEDS: ENOXAPARIN 40MG/0.4ML SYR SUBCUT SCH (08:04)
[2020-11-05] MEDS: METHADONE HCL 10MG TABLET PO SCH (08:21)
[2020-11-05 08:58] LABS: CHLORIDE 110 mEq/L (98-107)
[2020-11-05] MEDS: PHENOL/SODIUM PHENOLATE 1.4% SRPAY 177ML MM PRN ×2 (09:11→21:09)
[2020-11-05] MEDS ORDERED: TERBUTALINE SULFATE 1MG/ML VIAL SUBCUT NR (15:00)
[2020-11-05 20:35] LABS: BG BASE EXCESS 1.9 mmol/L (-2.0-2.0); BG CARBOXYHEMOGLOBIN 0.3 % (0.5-1.5); BG DEOXYHEMOGLOBIN 13.7 % (0.0-5.0); BG FRACTION INSPIRED OXYGEN 70; BG HCO3 ACT 28.3 mmol/L (22.0-26.0); BG METHEMOGLOBIN 0.4 % (0.0-1.5); BG OXYGEN SATURATION 86.2 % (92.0-98.5); BG OXYHEMOGLOBIN 85.6 % (94.0-97.0); BG PCO2 52.7 mmHg (35.0-45.0); BG PH 7.348 (7.350-7.450); BG PO2 54.8 mmHg (75.0-100.0); BG SAMPLE SITE LEFT RADIAL; BG TOTAL HEMOGLOBIN 11.6 g/dL (12.0-18.0); BG VENT MODE MASK - BIPAP
[2020-11-05] MEDS: LEVOFLOXACIN 250MG PREMIX 50 ML IV SCH (21:09)
[2020-11-05 21:32] LABS: PLATELET ESTIMATE NORMAL
[2020-11-05] MEDS: LORAZEPAM 2MG/ML CPJ IV PRN (22:17)
[2020-11-06] VITALS (12 sets, daily range): BP systolic 110–176; BP diastolic 62–99
[2020-11-06] MEDS: IPRATROPIUM/ALBUTEROL 0.5-3(2.5)MG/3ML NEB HHN SCH ×6 (00:05→20:16)
[2020-11-06] MEDS: ACETYLCYSTEINE 100MG/ML 10% VIAL 4ML INH SCH ×4 (00:05→22:00)
[2020-11-06] MEDS: HYDRALAZINE 20MG/ML VIAL IV PRN ×2 (00:52→20:55)
[2020-11-06] MEDS: LORAZEPAM 2MG/ML CPJ IV PRN ×3 (04:56→20:54)
[2020-11-06] MEDS: GUAIFENESIN 200MG/10ML SUGAR FREE UDC PO PRN (04:56)
[2020-11-06] MEDS: PHENOL/SODIUM PHENOLATE 1.4% SRPAY 177ML MM PRN (04:57)
[2020-11-06] MEDS: METHYLPREDNISOLONE SOD SUCC 125 MG/2 ML VIAL IV SCH ×3 (05:15→21:05)
[2020-11-06] MEDS: SODIUM CHLORIDE 0.9% INJ 3ML FLUSH IVF SCH ×3 (05:17→20:55)
[2020-11-06 07:14] LABS: CHLORIDE 111 mEq/L (98-107)
[2020-11-06] MEDS: CLONIDINE 0.1MG TABLET PO PRN ×2 (07:20→14:36)
[2020-11-06 07:35] LABS: HEMATOCRIT. 34.5 % (36.0-48.0); HEMOGLOBIN. 11.1 g/dL (12.0-16.0); MEAN CORPUSCULAR HEMOGLOBIN 24.4 pg (28.0-32.0); MEAN PLATELET VOLUME 8.1 fl (7.4-10.4); PLATELET 134 x1000/uL (130-400); RED BLOOD CELL COUNT 4.54 mill/uL (4.2-5.4); RED CELL DISTRIBUTION WIDTH 16.8 % (11.6-14.6)
[2020-11-06] MEDS: ENOXAPARIN 40MG/0.4ML SYR SUBCUT SCH (09:43)
[2020-11-06] MEDS: METHADONE HCL 10MG TABLET PO SCH (09:44)
[2020-11-06 09:53] LABS: BG BASE EXCESS 1.2 mmol/L (-2.0-2.0); BG CARBOXYHEMOGLOBIN 0.3 % (0.5-1.5); BG DEOXYHEMOGLOBIN 11.8 % (0.0-5.0); BG FRACTION INSPIRED OXYGEN 70; BG HCO3 ACT 26.2 mmol/L (22.0-26.0); BG METHEMOGLOBIN 0.3 % (0.0-1.5); BG OXYGEN SATURATION 88.1 % (92.0-98.5); BG OXYHEMOGLOBIN 87.6 % (94.0-97.0); BG PCO2 42.8 mmHg (35.0-45.0); BG PH 7.404 (7.350-7.450); BG PO2 56.2 mmHg (75.0-100.0); BG SAMPLE SITE RIGHT RADIAL; BG TOTAL HEMOGLOBIN 10.1 g/dL (12.0-18.0); BG TOTAL RESPIRATORY RATE 21 b/min; BG VENT MODE MASK - BIPAP
[2020-11-06 12:47] LABS: PLATELET ESTIMATE NORMAL
[2020-11-06] MEDS: LEVOFLOXACIN 250MG PREMIX 50 ML IV SCH (20:55)
[2020-11-07] VITALS (35 sets, daily range): BP systolic 93–186; BP diastolic 58–105
[2020-11-07] MEDS: HYDRALAZINE 20MG/ML VIAL IV PRN ×3 (06:20→16:24)
[2020-11-07] MEDS: SODIUM CHLORIDE 0.9% INJ 3ML FLUSH IVF SCH ×3 (06:20→22:00)
[2020-11-07] MEDS: METHYLPREDNISOLONE SOD SUCC 125 MG/2 ML VIAL IV SCH (06:20)
[2020-11-07] MEDS: ALBUTEROL 6.7GM HFA INHALER ORI SCH ×2 (06:27→11:02)
[2020-11-07] MEDS: METHADONE HCL 10MG TABLET PO SCH (08:47)
[2020-11-07] MEDS: ENOXAPARIN 40MG/0.4ML SYR SUBCUT SCH (08:48)
[2020-11-07] MEDS ORDERED: DEXAMETHASONE 4MG/ML 1ML VIAL IV SCH (09:45)
[2020-11-07] MEDS ORDERED: DEXAMETHASONE 10 MG/ML VIAL IV SCH (14:38)
[2020-11-07 18:02] LABS: BG BASE EXCESS 2.5 mmol/L (-2.0-2.0); BG DEOXYHEMOGLOBIN 12.7 % (0.0-5.0); BG FRACTION INSPIRED OXYGEN 100; BG HCO3 ACT 27.7 mmol/L (22.0-26.0); BG METHEMOGLOBIN 0.2 % (0.0-1.5); BG OXYGEN SATURATION 87.3 % (92.0-98.5); BG OXYHEMOGLOBIN 87.1 % (94.0-97.0); BG PCO2 45.4 mmHg (35.0-45.0); BG PH 7.404 (7.350-7.450); BG PO2 56.2 mmHg (75.0-100.0); BG SAMPLE SITE LEFT RADIAL; BG TOTAL HEMOGLOBIN 13.1 g/dL (12.0-18.0); BG VENT MODE MASK - BIPAP
[2020-11-07] MEDS ORDERED: FENTANYL CITRATE/PF 2,500 MCG in SODIUM CHLORIDE 0.9% 200 ML IV PRN (18:30)
[2020-11-07] MEDS ORDERED: PROPOFOL 10MG/ML 100ML 100 ML IV PRN (18:30)
[2020-11-07] MEDS ORDERED: MIDAZOLAM HCL 100 MG in SODIUM CHLORIDE 0.9% 80 ML IV PRN (18:30)
[2020-11-07] MEDS ORDERED: PHENYLEPHRINE 100 MG in DEXT 5% WATER 240 ML IV PRN (19:30)
[2020-11-07 21:03] LABS: BG BASE EXCESS -1.6 mmol/L (-2.0-2.0); BG CARBOXYHEMOGLOBIN 0.5 % (0.5-1.5); BG DEOXYHEMOGLOBIN 11.2 % (0.0-5.0); BG FRACTION INSPIRED OXYGEN 100; BG HCO3 ACT 26.1 mmol/L (22.0-26.0); BG METHEMOGLOBIN 0.3 % (0.0-1.5); BG OXYGEN SATURATION 88.7 % (92.0-98.5); BG PCO2 57.3 mmHg (35.0-45.0); BG PH 7.277 (7.350-7.450); BG PO2 64.9 mmHg (75.0-100.0); BG SAMPLE SITE RIGHT RADIAL; BG TOTAL HEMOGLOBIN 13.4 g/dL (12.0-18.0); BG VENT MODE VENT - AC
[2020-11-07] MEDS: LEVOFLOXACIN 250MG PREMIX 50 ML IV SCH (22:07)
[2020-11-08] VITALS: BP 88/60
[2020-11-08 00:15] VITALS: BP 89/63
[2020-11-08 00:30] VITALS: BP 86/56
[2020-11-08 00:45] VITALS: BP 73/49
[2020-11-08 01:00] VITALS: BP 77/47
[2020-11-08 01:15] VITALS: BP 67/46
[2020-11-08] MEDS ORDERED: DEXAMETHASONE 10 MG/ML VIAL IV SCH (09:00)
[2020-11-08] MEDS ORDERED: CALCIUM CHLORIDE 1GM/10ML SYR IV ONE (09:05)
[2020-11-08] MEDS ORDERED: EPINEPHRINE 0.1MG/ML (1:10,000) 10ML SYR ONE (09:05)
[2020-11-08] MEDS ORDERED: AMIODARONE HCL 50MG/ML 3ML VIAL IV ONE (09:05)
[2020-11-08] MEDS ORDERED: SODIUM BICARBONATE 8.4% 1 MEQ/ML 50ML SYR IV ONE (09:05)
== END 2020-11-08 01:49 | DRG 137 ==
LOC: ER 18:57 → MICUSO 22:53 → EDBEDREQSVC 22:56 → EDBEDREQ 22:56 → EDBEDREQTM 22:56 → 5EST 11-03 19:47 → 7WST 11-06 23:16 → MICUSO 11-07 18:04
PROVIDERS: ADMIT Internal Medicine; ATTEND Internal Medicine
PROC: 5A09557 Assistance with Respiratory Ventilation, Greater than 96 Consecutive Hours, Continuous Positive Airway Pressure (ICD-10-PCS; principal; 2020-11-02)
PROC: 5A1935Z Respiratory Ventilation, Less than 24 Consecutive Hours (ICD-10-PCS; 2020-11-07)
PROC: 0BH17EZ Insertion of Endotracheal Airway into Trachea, Via Natural or Artificial Opening (ICD-10-PCS; 2020-11-07)
PROC: 5A12012 Performance of Cardiac Output, Single, Manual (ICD-10-PCS; 2020-11-08)
DX: U07.1 COVID-19 (principal); J96.01 Acute respiratory failure with hypoxia; E44.0 Moderate protein-calorie malnutrition; D69.6 Thrombocytopenia, unspecified; J44.1 Chronic obstructive pulmonary disease with (acute) exacerbation; B19.20 Unspecified viral hepatitis C without hepatic coma; D50.9 Iron deficiency anemia, unspecified; F41.9 Anxiety disorder, unspecified; G47.00 Insomnia, unspecified; I10 Essential (primary) hypertension; K21.9 Gastro-esophageal reflux disease without esophagitis; R74.01 Elevation of levels of liver transaminase levels; R74.8 Abnormal levels of other serum enzymes; R77.8 Other specified abnormalities of plasma proteins; J20.9 Acute bronchitis, unspecified; Z99.81 Dependence on supplemental oxygen; Z82.49 Family history of ischemic heart disease and other diseases of the circulatory system; Z88.0 Allergy status to penicillin; Z79.82 Long term (current) use of aspirin; Z79.899 Other long term (current) drug therapy; I46.9 Cardiac arrest, cause unspecified
CPT/HCPCS: 31500; 36415; 36600; 71045; 80048; 80053; 80076; 81003; 82375; 82550; 82553; 82805; 82962; 83605; 84145; 84484; 85025; 87426; 90732; 93005; 93306; 93970; 94002; 94640; 94644; 94660; 99291; A6261; J0282; J0360; J1100; J1200; J1650; J1956; J2060; J2185; J2250; J2370; J2704; J2930; J3010; J3105; J3370; J3490; J7040; J7050; J7060; J7512; J7608; U0003; U0005; A4315